=== PATIENT | female | born 1975 | race Caucasian/White ===

== ENCOUNTER 2023-10-25 09:57 | Outpatient (CLI) | payer OTHER, SELFPAY | END 2023-10-25 09:58 | disposition home or self-care (01) | PROVIDERS: Visit Provider Physician Assistant | DX: Z13.220 Encounter for screening for lipoid disorders (principal); Z13.1 Encounter for screening for diabetes mellitus | CPT/HCPCS: 80061; 82947 ==

== ENCOUNTER 2024-02-18 12:46 | Emergency (ER) | payer OTHER, SELFPAY ==
[2024-02-18] VITALS (16 sets, daily range): BP systolic 130–154; BP diastolic 83–90; PULSE 53–92; RESP 18–20; TEMP 36.9; O2SAT 95–100; BMI 19.9
--- NOTE | 2024-02-18 13:05 | CRLHL7_ITS ---
For Patients: As a result of the Century Cures Act, medical imaging exams and procedure reports are released immediately into your electronic medical record. You may view this report before your referring provider. If you have questions, please contact your health care provider. INDICATION: Right abdominal/flank pain, history of stone. TECHNIQUE: CT abdomen and pelvis without contrast. COMPARISON: None. FINDINGS: Lower chest: Scattered atelectasis. Liver: Normal in size and attenuation. No suspicious masses. Gallbladder and bile ducts: Cholecystectomy. Pancreas: Unremarkable. No mass or inflammation. Spleen: Normal in size. No masses. Adrenal glands: Normal in size. No nodules. Kidneys: Normal in size. No suspicious masses, stones, or hydronephrosis. GI tract: Mobile prominent air-filled cecum in the right upper quadrant. Moderate colonic stool burden. Normal in caliber. No sign of mass or inflammation. Normal appendix. Vasculature: Abdominal aorta is normal in caliber. Lymph nodes: No lymphadenopathy. Peritoneum/Abdominal Wall: Unremarkable. No sign of mass or infiltration. No free air or significant free fluid. Pelvis: Unremarkable. No pelvic masses. Bones: Unremarkable for age. IMPRESSION: Mobile prominent air-filled cecum in the right upper quadrant. No bowel obstruction. No obstructive uropathy as questioned. Moderate colonic stool burden. Please note that all CT scans at this facility use dose modulation, iterative reconstruction, and/or weight-based dosing when appropriate to reduce radiation dose to as low as reasonably achievable. Dictated by Brian Campos MD @ 02/18/2024 2:36:03 PM (Electronically Signed)
[2024-02-18] MEDS: ONDANSETRON 2 MG/ML inj 4 MG IVP ×2 (13:21→15:57)
[2024-02-18] MEDS: HYDROmorphone 0.5 mg/0.5 ml inj IVP (13:21)
[2024-02-18 13:22] LABS: Appearance Urine Clear (Clear); Bilirubin Urine Negative (Negative); Blood Urine Trace-intact (Negative); Color Urine Yellow (Yellow); Glucose Urine Negative (Negative); Ketones Urine Negative (Negative); Leukocyte Esterase Urine Trace (Negative); Nitrite Urine Negative (Negative); Protein Urine Negative (Negative); Urobilinogen Urine 0.2 (0.2-1.0)
[2024-02-18] MEDS: KETOROLAC 30 MG/ML inj 15 MG IVP (13:22)
[2024-02-18 13:31] LABS: RBC Urine 0-2 (0-2); Squamous Epithelial Cell Urine Many (None-Few)
[2024-02-18 13:46] LABS: Basophils Absolute Auto 0.02 K/uL (0.00-0.30); Basophils Percent Auto 0.3 % (0.0-3.0); Eosinophils Absolute Auto 0.14 K/uL (0.00-0.50); Eosinophils Percent Auto 1.8 % (0.0-7.0); Hematocrit 43.8 % (33.0-51.0); Hemoglobin* 14.5 gm/dL (12.0-16.0); Immature Granulocytes Abs Auto 0.02 K/uL (0.00-0.30); Immature Granulocytes Pct Auto 0.3 %; Lymphocytes Absolute Auto 3.23 K/uL (0.90-2.90); Lymphocytes Percent Auto 41.6 % (20-44); Mean Corpuscular HGB Conc 33 gm/dL (32-36); Mean Corpuscular Hemoglobin 31 pg (26-34); Mean Corpuscular Volume 93 fL (80-100); Monocytes Percent Auto 7.7 % (0.0-11.0); Neutrophils Absolute Auto 3.76 K/uL (1.7-7.0); Neutrophils Percent Auto 48.3 % (42.0-72.0); Platelet Count* 287 K/uL (140-440); RDW Coefficient of Variation % 11.6 % (11.5-15.5); White Blood Count* 7.77 K/uL (4.50-11.00)
[2024-02-18 13:47] LABS: Slide Review Reflex No
[2024-02-18 13:58] LABS: Chloride* 104 mmol/L (96-114); Potassium* 3.6 mmol/L (3.6-5.1); Sodium* 137 mmol/L (135-149)
[2024-02-18 14:01] LABS: Anion Gap 9 mEq/L (7-15); Blood Urea Nitrogen* 15 mg/dL (5-24); Carbon Dioxide* 24 mmol/L (20-32); Creatinine* 0.8 mg/dL (0.5-1.5); Est. Creatinine Clearance* 84.04; Estimated Glomerular Filt Rate 91 ml/min; Glucose* 83 mg/dL (60-115)
--- NOTE | 2024-02-18 16:01 | ED.ABDPAIN ---
HPI - Abdominal Pain General Chief Complaint: Abdominal Pain Stated Complaint: poss kidney stone Time Seen by Provider: 02/18/24 12:47 History of Present Illness HPI narrative: This 48-year-old female comes in reporting severe abdominal pain. She had some mild pain a couple days ago but it became much worse today. She states that she has a history of kidney stone and wonders if she is passing a stone. She does report pain in her right flank and right lower abdomen. However she states that it hurts more to stand up straight and with any kind of movement. She does not report any fevers. She has had her gallbladder out and states that she had similar symptoms of pain a couple years ago and was told that she may have had some adhesions causing the pain. Related Data Home Medications ?Medication ?Instructions ?Recorded ?Confirmed medroxyprogesterone 150 mg/mL 150 mg IM [id number] 10/25/23 10/25/23 intramuscular syringe (Depo-Provera) Previous Rx's ?Medication ?Instructions ?Recorded hydrocodone 5 mg-acetaminophen 325 1 tab PO Q4-6H PRN pain #15 tabs 02/18/24 mg tablet ketorolac 10 mg tablet 10 mg PO Q8H 5 days #15 tabs 02/18/24 ondansetron HCl 4 mg tablet 4 mg PO Q6H #10 tabs 02/18/24 simethicone 80 mg chewable tablet 80 mg PO BID-QID PRN abdominal 02/18/24 distention #20 tabs Allergies Allergy/AdvReac Type Severity Reaction Status Date / Time adhesive AdvReac rash Verified 10/25/23 08:23 Review of Systems Narrative Constitutional: No fevers, no weight gain or loss. Eyes: No discharge. No vision changes. HENT: No congestion, no sore throat, no ear pain. Cardiovascular: No chest pain, no palpitations. Respiratory: No shortness of breath, no wheezes, no cough. Gastrointestinal: Abdominal pain with nausea. Genitourinary: No dysuria, no hematuria. Musculoskeletal: Normal range of motion. Skin: No rashes, no pruritis. Neurological: No dizziness, weakness, sensory change, speech change. Endo/Heme/Allergies: No bruising or bleeding. No polydipsia. Pysch: no suicidality, no anxiety, no insomnia. All other systems reviewed and are negative. 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 Nonsmoker. Denies alcohol use. Smoking Status: Never smoker How often do you have a drink containing alcohol: never AUDIT-C Alcohol total score: 0 Non-prescribed substance use: denies use Little interest or pleasure in doing things: not at all Feeling down, depressed, or hopeless: several days service: No Exam Narrative: Exam Narrative: Constitutional: Well-developed, well-nourished, no acute distress. HEENT: Normocephalic, atraumatic. Neck: Normal range of motion. Nontender. Supple. Heart: Regular. No murmurs. Normal rate. Intact distal pulses. Lungs: Clear to auscultation. No chest discomfort. No wheezes, rhonchi, or rales. Abdomen: Normal bowel sounds. Tenderness in the right flank and right abdomen. Pain is worse when palpating in her right abdomen. Genitalia: Deferred. Back: No midline tenderness. Normal range of motion. Extremities: Normal range of motion. No injury. Skin: Intact. No rash. Warm. No erythema or pallor. Neurologic: No altered sensation. No weakness. Alert and oriented. Psychiatric: No suicidality. No anxiety or depression. No insomnia. Nursing notes and vitals signs are reviewed. Const: Vital Signs, click to edit/add: Vital Signs - 24 hr 02/18/24 12:48 02/18/24 13:33 02/18/24 13:35 Temperature 98.5 F Pulse Rate 68 Pulse Rate [Right Pulse Oximeter] 92 Respiratory Rate 20 Blood Pressure Blood Pressure [Ri ght Upper Arm] 154/88 H Pulse Oximetry 100 95 95 Oxygen Delivery Me thod Room Air 02/18/24 13:47 02/18/24 13:55 02/18/24 13:55 Temperature Pulse Rate 68 63 Pulse Rate [Right Pulse Oximeter] 64 Respiratory Rate 18 Blood Pressure 130/83 Blood Pressure [Ri ght Upper Arm] 130/83 Pulse Oximetry 99 95 98 Oxygen Delivery Me thod Room Air 02/18/24 14:25 02/18/24 14:28 02/18/24 14:30 Temperature Pulse Rate 62 61 Pulse Rate [Right Pulse Oximeter] 65 Respiratory Rate 18 Blood Pressure 139/90 H Blood Pressure [Ri ght Upper Arm] 139/90 H Pulse Oximetry 96 97 97 Oxygen Delivery Me thod Room Air 02/18/24 14:45 02/18/24 15:00 02/18/24 15:15 Temperature Pulse Rate 65 66 67 Pulse Rate [Right Pulse Oximeter] Respiratory Rate Blood Pressure Blood Pressure [Ri ght Upper Arm] Pulse Oximetry 99 100 100 Oxygen Delivery Me thod 02/18/24 15:30 02/18/24 15:32 02/18/24 15:33 Temperature Pulse Rate 53 L 62 Pulse Rate [Right Pulse Oximeter] 65 Respiratory Rate 18 Blood Pressure 131/85 Blood Pressure [Ri ght Upper Arm] 131/85 Pulse Oximetry 99 96 99 Oxygen Delivery Me thod Room Air 02/18/24 15:45 02/18/24 16:00 Temperature Pulse Rate 73 66 Pulse Rate [Right Pulse Oximeter] Respiratory Rate Blood Pressure Blood Pressure [Ri ght Upper Arm] Pulse Oximetry 100 99 Oxygen Delivery Me thod Course Vital Signs Vital signs: Initial Vital Signs Temperature 98.5 F 02/18/24 12:48 Temperature Source Temporal Artery Scan 02/18/24 12:48 Pulse Rate 92 02/18/24 12:48 Pulse Rhythm Regular 02/18/24 12:48 Pulse Strength 3+ Normal 02/18/24 12:48 Respiratory Rate 20 02/18/24 12:48 Blood Pressure 154/88 H 02/18/24 12:48 Blood Pressure Mean 110 H 02/18/24 12:48 Blood Pressure Position Sitting 02/18/24 12:48 Pulse Oximetry 100 02/18/24 12:48 Oxygen Delivery Method Room Air 02/18/24 12:48 Vital Signs Temperature 98.5 F 02/18/24 12:48 Pulse Rate 92 02/18/24 12:48 Respiratory Rate 20 02/18/24 12:48 Blood Pressure 154/88 H 02/18/24 12:48 Pulse Oximetry 100 02/18/24 12:48 Oxygen Delivery Method Room Air 02/18/24 12:48 Temperature 98.5 F 02/18/24 12:48 Pulse Rate 66 02/18/24 16:00 Respiratory Rate 18 02/18/24 15:32 Blood Pressure 131/85 02/18/24 15:33 Pulse Oximetry 99 02/18/24 16:00 Oxygen Delivery Method Room Air 02/18/24 15:32 Medications Administered Medications: Discontinued Medications Generic Name Dose Route Start Last Admin Trade Name [place] PRN Reason Stop Dose Admin Hydromorphone HCl 0.5 mg 02/18/24 13:05 02/18/24 13:21 Hydromorphone 0.5 Mg/0.5 Ml Inj IVP 02/18/24 13:06 0.5 mg ONCE ONE Administration Ketorolac Tromethamine 15 mg 02/18/24 13:05 02/18/24 13:22 Ketorolac 30 Mg/Ml Inj IVP 02/18/24 13:06 15 mg ONCE ONE Administration Ondansetron HCl 4 mg 02/18/24 13:05 02/18/24 13:21 Ondansetron 2 Mg/Ml Inj IVP 02/18/24 13:06 4 mg ONCE ONE Administration Ondansetron HCl 4 mg 02/18/24 15:48 02/18/24 15:57 Ondansetron 2 Mg/Ml Inj IVP 02/18/24 15:49 4 mg ONCE ONE Administration Simethicone 80 mg 02/18/24 17:21 02/18/24 17:41 Simethicone 80 Mg Tab.Chew PO 02/18/24 17:22 80 mg ONCE ONE Administration MDM - Abdominal Pain MDM Narrative Medical decision making narrative: This patient comes in with severe pain in her right abdomen and right flank. She wondered if it was a kidney stone initially. She states however that it was difficult to stand up straight and pain seemed to be worse with movement. I did order a CT scan without contrast and an IV was placed and labs are acquired. The patient received IV doses of Toradol, Zofran, and Dilaudid. This brought relief to her symptoms. CT scan returns with distended bowel with excessive air in the right abdomen especially. This likely accounts for her pain is there is no other finding that is pertinent. Additionally lab results returned with reassuring findings. The patient did have some air in her stomach and a NG tube was discussed and the patient stated that she wanted to have this. An NG was placed with suction and then removed. There was a small amount of fluid wound that was drained. The patient did receive a dose of simethicone. She feels that she is okay to return home. I did advise her regarding signs and symptoms that would indicate a need for return and re-evaluation. She had similar symptoms of pain a couple years ago and symptoms resolved over the next day or so. She is discharged home today with prescriptions for [place], Toradol, Zofran, and simethicone. Lab Data Labs: Lab Results 02/18/24 02/18/24 Range/Units 13:14 13:20 WBC 7.77 (4.50-11.00) K/uL RBC 4.70 (4.00-5.20) m/uL Hgb 14.5 (12.0-16.0) gm/dL Hct 43.8 (33.0-51.0) % MCV 93 (80-100) fL MCH 31 (26-34) pg MCHC 33 (32-36) gm/dL RDW Coeff of Aron 11.6 (11.5-15.5) % Plt Count 287 (140-440) K/uL Neut % (Auto) 48.3 (42.0-72.0) % Lymph % (Auto) 41.6 (20-44) % [place] % (Auto) 7.7 (0.0-11.0) % Eos % (Auto) 1.8 (0.0-7.0) % Baso % (Auto) 0.3 (0.0-3.0) % Neut # (Auto) 3.76 (1.7-7.0) K/uL Lymph # (Auto) 3.23 H (0.90-2.90) K/uL [place] # (Auto) 0.60 (0.00-0.90) K/UL Eos # (Auto) 0.14 (0.00-0.50) K/uL Baso # (Auto) 0.02 (0.00-0.30) K/uL Abs Immat Gran (auto) 0.02 (0.00-0.30) K/uL Imm/Tot Granulo (auto) 0.3 % Sodium 137 (135-149) mmol/L Potassium 3.6 (3.6-5.1) mmol/L Chloride 104 (96-114) mmol/L Carbon Dioxide 24 (20-32) mmol/L Anion Gap 9 (7-15) mEq/L BUN 15 (5-24) mg/dL Creatinine 0.8 (0.5-1.5) mg/dL Estimated Creat Clear 84.04 Estimated GFR 91 ml/min Glucose 83 (60-115) mg/dL Calcium 9.0 (8.4-10.6) mg/dL Urine Color Yellow (Yellow) Urine Appearance Clear (Clear) Urine pH 6.0 (5.0-8.5) Ur Specific [place] 1.020 (1.000-1.030) Urine Protein Negative (Negative) Urine Glucose (UA) Negative (Negative) Urine Ketones Negative (Negative) Urine Blood Trace-intact A (Negative) Urine Nitrite Negative (Negative) Urine Bilirubin Negative (Negative) Urine Urobilinogen 0.2 (0.2-1.0) Ur Leukocyte Esterase Trace A (Negative) Urine RBC 0-2 (0-2) Urine WBC 10-25 A (0-5) Ur Squamous Epith Cells Many A (None-Few) Urine Bacteria None (None) Imaging Data CT scan - abdomen: Radiologist's impression: Mobile prominent air-filled cecum in the right upper quadrant. No bowel obstruction. No obstructive uropathy as questioned. Moderate colonic stool burden. ECG Data Attestation: I personally reviewed and interpreted this ECG as follows: Interpretation: Normal sinus rhythm. Rate is 51 beats per minute. There are no ST or T-wave abnormalities. Discharge Plan Discharge Clinical Impression: Abdominal pain Patient Disposition: Home w/ Parent or Adult Condition: Stable Additional Instructions: Take medications as needed and indicated. Follow up with MD or return if symptoms are persistent or worsening. Prescriptions: New hydrocodone-acetaminophen 5-325 mg tablet 1 tab PO Q4-6H PRN (Reason: pain) Qty: 15 0RF ondansetron HCl 4 mg tablet 4 mg PO Q6H Qty: 10 0RF ketorolac 10 mg tablet 10 mg PO Q8H 5 Days Qty: 15 0RF simethicone 80 mg tablet,chewable 80 mg PO BID-QID PRN (Reason: abdominal distention) Qty: 20 0RF No Action medroxyprogesterone [Depo-Provera] 150 mg/mL syringe 150 mg IM [id number] Follow Up/Referrals: Petty Lopez PA-C [Primary Care Provider] - Stand Alone [facility]
--- NOTE | 2024-02-18 16:27 | CRLHL7_ITS ---
For Patients: As a result of the Century Cures Act, medical imaging exams and procedure reports are released immediately into your electronic medical record. You may view this report before your referring provider. If you have questions, please contact your health care provider. Indication: NG placement. Technique: Abdomen 1 view. Comparison: February 18, 2024. Findings/Impression: Bowel: Multiple mildly dilated loops of large bowel. Subdiaphragmatic enteric tube with tip in the stomach and proximal port about the distal esophagus. Recommend adjustment. Soft tissues: No sign of free air. No sign of soft tissue mass. No suspicious calcifications. Bones: Unremarkable for age. Dictated by Brian Campos MD @ 02/18/2024 5:52:14 PM (Electronically Signed)
[2024-02-18] MEDS: SIMETHICONE 80 MG TAB.CHEW PO (17:41)
== END 2024-02-18 18:26 | disposition home or self-care (01) ==
PROVIDERS: Emergency Provider Emergency Medicine Emergency Medical Services; PCP Physician Assistant
DX: R10.11 Right upper quadrant pain (principal)
CPT/HCPCS: 36415; 74018; 74176; 80048; 81001; 85025; 87086; 93005; 94761; 96374; 96375; 96376; 99284; 99285; A9270; J1170; J1885; J2405